=== PATIENT | female | born 1990 | race African-American/Black ===

== ENCOUNTER 2018-06-15 11:36 | Emergency (ER) | payer MEDICAID ==
[~2018-06-15] VITALS: Ht 152.4 cm; Wt 116.0 kg
[2018-06-15] MEDS ORDERED: DIPHENHYDRAMINE 50MG CAPSULE PO ONE (14:15)
[2018-06-15 14:40] VITALS: BP 130/75
== END 2018-06-15 15:41 | disposition home or self-care (01) ==
LOC: ER 14:50
DX: B01.9 Varicella without complication (principal)
CPT/HCPCS: 99283; Q0163